=== PATIENT | female | born 1985 | race Caucasian/White ===

== ENCOUNTER 2020-05-25 17:11 | Emergency (ER) | payer BC ==
[~2020-05-25] VITALS: Ht 160 cm; Wt 73.0 kg
[2020-05-25 19:08] LABS: CALCIUM 8.9 mg/dL (8.5-10.1); CARBON DIOXIDE 25.6 mmol/L (21-32); CHLORIDE SERUM 105 mmol/L (98-107); CREATININE SERUM 0.8 mg/dL (0.6-1.0); GFR1 > 60 mL/min; GLUCOSE SERUM 87 mg/dL (74-106); POTASSIUM SERUM 3.6 mmol/L (3.5-5.1); SODIUM SERUM 140 mmol/L (136-145)
[2020-05-25 19:13] LABS: ALKALINE PHOSPHATASE 63 U/L (46-116); ALT/SGPT 29 U/L (14-59); AST/SGOT 13 U/L (15-37); BILIRUBIN TOTAL 1.26 mg/dL (0.20-1.00); CHOLESTEROL 157 mg/dL (<200); LIPASE 191 IU/L (73-393); TOTAL PROTEIN, SERUM 7.5 g/dL (6.4-8.2); TRIGLYCERIDES 34 mg/dL (<150)
[2020-05-25 19:20] LABS: BASOPHIL % 0.6 % (0-2); PLATELET COUNT 481 x10^3mcL (130-400); RED CELL DISTRIBUTION WIDTH 12.3 % (11.5-14.5)
[2020-05-25 19:25] LABS: CHOLESTEROL/HDL RATIO 1.9; HDL CHOLESTEROL 82 mg/dL (40-60)
[2020-05-25 19:39] LABS: UA SPECIFIC GRAVITY >=1.030 (1.005-1.035); microscopic required? YES; urine erythrocyte 1+ (NEGATIVE)
[2020-05-25 23:02] VITALS: BP 114/72
== END 2020-05-25 23:02 | disposition home or self-care (01) ==
LOC: ED 17:11
PROVIDERS: Specialist
DX: N39.0 Urinary tract infection, site not specified (principal)
CPT/HCPCS: J1885; J3010; Q0162